=== PATIENT | female | born 1960 | race Caucasian/White ===

== ENCOUNTER 2022-09-05 05:55 | Day surgery (SDC) | payer MEDICARE ==
[2022-09-05] MEDS ORDERED: Lactated Ringers 1,000 ML IV SCH (06:30)
[2022-09-05] MEDS ORDERED: Xylocaine-Mpf 2% 5 Ml Vial ONE (07:46)
[2022-09-05] MEDS ORDERED: DIPRIVAN 200 MG/20 ML IV ONE (07:46)
[2022-09-05] MEDS ORDERED: ATROPINE SULFATE 1MG ONE (07:48)
[2022-09-05 08:42] VITALS: O2SAT 97
[2022-09-05 08:56] VITALS: BP 119/78; PULSE 64
--- NOTE | 2022-09-05 13:32 | OP ---
SURGERY DATE/TIME: 09/05/2022 0747 PREOPERATIVE DIAGNOSIS: History of colon polyps and positive Cologuard test. POSTOPERATIVE DIAGNOSIS: Normal colon. PROCEDURE: Colonoscopy. SURGEON: Dr. Garry Wiggins. ANESTHESIA: MAC. Medications given by anesthesia department. HISTORY: The patient is a 62-year-old white female who presents now for colonoscopic evaluation with history of previous colon polyps and recent positive Cologuard test. The patient was appraised of the risks of the procedure including the risk of perforation, phlebitis, untoward reaction to medication, bleeding and missed lesions. The patient verbalized her understanding and desired to have the procedure performed. DESCRIPTION OF PROCEDURE: The patient was given the medications by the anesthesia department. She had continuous pulse oximetry, ECG monitoring, intermittent blood pressure monitoring and tidal CO2 monitoring during the examination. She was placed in the left lateral decubitus position. A digital rectal examination was performed and revealed normal anal sphincter tone and no masses. The flexible Olympus pediatric colonoscope was used to intubate the rectum. A view of the colon was developed sequentially to the cecum. Upon insertion and withdrawal, including a retroflex view in the rectum, no mucosal lesions were encountered. The scope was removed from the patient who tolerated the procedure well and was sent back to outpatient recovery in good condition. The prep was noted to be good.
== END 2022-09-05 08:55 | disposition home or self-care (01) ==
LOC: SDC 05:55
PROVIDERS: ATTEND Family Medicine
DX: Z09 Encounter for follow-up examination after completed treatment for conditions other than malignant neoplasm (principal); K63.5 Polyp of colon; R19.5 Other fecal abnormalities
CPT/HCPCS: 93005; J0461; J2704